=== PATIENT | female | born 1995 | race Caucasian/White ===

== ENCOUNTER 2021-09-04 05:27 | Emergency (ER) | payer SELFPAY ==
[2021-09-04 05:34] VITALS: BP 148/93; PULSE 73; RESP 16; TEMP 36.1; O2SAT 100
[2021-09-04 07:36] LABS: Basophils Percent Auto 0.5 % (0.2-1.2); Eosinophils Percent Auto 0.5 % (0-4.4); Hematocrit 41.5 % (37.0-47.0); Hemoglobin 13.3 g/dL (12.0-15.0); Immature Granulocyte Absolute 0.02 K/mm3 (0.00-0.031); Immature Granulocyte Percent A 0.3 % (0-0.5); Lymphocytes Absolute Auto 2.28 K/mm3 (0.9-3.2); Mean Corpuscular Hemoglobin 27.3 pg (26-34); Mean Corpuscular Volume 85.2 fl (80-100); Mean Platelet Volume 10.1 fl (7.4-10.4); Monocytes Absolute Auto 0.5 K/mm3 (0.1-0.6); Monocytes Percent Auto 6.2 % (2.6-8.5); Neutrophils Percent Auto 63.5 % (45.5-73.1); Platelet Count Result 292 k/mm3 (150-375); Red Blood Count 4.87 M/mm3 (4.2-5.4); Red Cell Distribution Width 14.9 % (11.5-14.5); White Blood Count 7.9 K/mm3 (4.5-10.0)
[2021-09-04] MEDS: MORPHINE SULFATE (*CRX) 4 MG/ML INJ IV PUSH (07:45)
[2021-09-04] MEDS: ONDANSETRON INJ 4 MG/2 ML VIAL IV PUSH (07:45)
[2021-09-04 08:00] LABS: Alanine Aminotransferase 21 U/L (4-35); Albumin Level 4.5 g/dL (3.5-5.1); Alkaline Phosphatase 78 U/L (38-126); Anion Gap 9 mmol/L (8-16); Aspartate Amino Transferase 32 U/L (14-36); Bilirubin,Total 0.7 mg/dL (0.2-1.3); Blood Urea Nitrogen 16 mg/dL (7-17); Calcium 9.8 mg/dL (8.4-10.2); Carbon Dioxide 26 mmol/L (22-30); Chloride 103 mmol/L (98-107); Estimated CRCL calculation 99 ml/min; Estimated Glomerular Filt Rate > 60; Glucose 109 mg/dL (65-110); Lipase 66 U/L (23-300); Potassium 4.6 mmol/L (3.4-5.0); Sodium 138 mmol/L (137-145)
[2021-09-04 08:16] LABS: Add Urine Microscopic? YES; Appearance Urine Cloudy (Clear); Bilirubin Urine Negative (Negative); Blood Urine Negative (Negative); Color Urine Yellow (Yellow); Glucose Urine UA Negative (Negative); Ketones Urine Negative (Negative); Leukocyte Esterase Ur Negative LEU/UL (Negative); Mucus Urine Few /lpf; Nitrate Urine Negative (Negative); Protein Urine Negative (Negative); RBC Urine 0-2 /hpf (0-2); Specific Grav Ur 1.025 (1.001-1.035); Squamous Epithelial Cell Urine Many /hpf (Few); WBC Urine 0-3 /hpf
--- NOTE | 2021-09-04 09:26 | ED.GENADULT ---
HPI - General Adult General Chief complaint: Nausea/Vomiting/Diarrhea Stated complaint: vomiting in the middle of the night x months Time Seen by Provider: 09/04/21 06:53 History of Present Illness HPI narrative: Patient is a 25-year-old female who presents ER with reports of nausea and abdominal pain. Reports intermittent nausea over the last month. Reoccurred today. Associate with some vomiting. No diarrhea or constipation. She reports she is had diffuse abdominal cramping intermittently over the last month as well. No urinary frequency urgency or dysuria. She is denying vaginal bleeding or vaginal discharge. She does report that she was diagnosed with chlamydia couple months ago. She took antibiotics at that time but her sexual partner did not take his appropriately and was diagnosed with chlamydia later. He then passed it back to her. She received antibiotics 4 weeks ago for chlamydia but did not take them appropriately as she did been moving and was drinking alcohol regularly at the time. She reports it took her a month to finish 1 week supply of antibiotics. She is concerned she may still have the infection. Related Data Allergies Allergy/AdvReac Type Severity Reaction Status Date / Time omeprazole [From Prilosec] Allergy Rash Verified 09/04/21 05:40 Review of Systems Review of Systems: All systems reviewed & are unremarkable except as noted in HPI and below Constitutional: Constitutional: Denies chills, Denies fever(s) and Denies weakness ENT: Denies nasal congestion and Denies sore throat Cardiovascular: Cardiovascular: Denies chest pain, Denies rapid heart rate and Denies radiating jaw, neck or arm pain Respiratory: Respiratory: Denies cough and Denies dyspnea Gastrointestinal: Gastrointestinal: Reports abdominal pain, Denies constipation, Denies diarrhea and Reports vomiting Genitourinary: Genitourinary: Denies abnormal vaginal bleeding, Denies nocturia, Denies dysuria, Denies flank pain, Denies urinary incontinence and Denies vaginal discharge PMFSH Past Medical History Medical History (Updated 09/04/21 @ 10:09 by Audie Ahn MD) Chlamydia Healthy female adult Surgical History Surgical History (Updated 09/04/21 @ 09:29 by Audie Ahn MD) No pertinent past surgical history Social History Social History (Updated 09/04/21 @ 09:32 by Audie Ahn MD) Alcohol intake: current Exam Narrative: GENERAL: Well-appearing, well-nourished, and in no acute distress. HEAD: Normocephalic, atraumatic. ENT: Mucous membranes moist. CHEST: Clear to auscultation. No respiratory distress. HEART: Regular rate and rhythm. Normal peripheral pulses. ABDOMEN: Soft, mild diffuse pain without guarding or point tenderness, nondistended, normal active bowel sounds. : Normal-appearing external genitalia. Cervix normal in appearance and noninflamed. No CMT. Physiologic discharge noted. No vaginal bleeding. EXTREMITIES: Normal range of motion. No edema. SKIN: Warm, dry, no rash. NEURO: Alert and oriented x3. PSYCH: Normal mood and affect. Course Course Emergency Course: Labs unremarkable. Repeat exam of the abdomen is benign without tenderness or guarding. Patient be discharged home with Doxy/metronidazole/Phenergan. Vital Signs Vital signs: Vital Signs Temperature 96.9 F L 09/04/21 05:34 Pulse Rate 73 09/04/21 05:34 Respiratory Rate 16 09/04/21 05:34 Blood Pressure 148/93 H 09/04/21 05:34 Pulse Oximetry 100 09/04/21 05:34 Temperature 96.9 F L 09/04/21 05:34 Pulse Rate 73 09/04/21 05:34 Respiratory Rate 16 09/04/21 05:34 Blood Pressure 148/93 H 09/04/21 05:34 Pulse Oximetry 100 09/04/21 05:34 Medical Decision Making Vital Signs Vital Signs: Vital Signs Temperature 96.9 F L 09/04/21 05:34 Pulse Rate 73 09/04/21 05:34 Respiratory Rate 16 09/04/21 05:34 Blood Pressure 148/93 H 09/04/21 05:34 Pulse Oximetry 100 09/04/21 05:34 Tem
[2021-09-04 10:49] VITALS: BP 114/81; PULSE 79; RESP 16; O2SAT 100
== END 2021-09-04 10:51 | disposition home or self-care (01) ==
PROVIDERS: Emergency Provider Emergency Medicine
DX: R11.0 Nausea (principal); Z20.2 Contact with and (suspected) exposure to infections with a predominantly sexual mode of transmission
CPT/HCPCS: 36415; 80053; 81001; 81025; 83690; 85025; 87491; 87591; 87808; 96374; 96375; 99284; J2270; J2405